=== PATIENT | female | born 1960 | race Caucasian/White ===

== ENCOUNTER 2021-04-28 12:21 | Emergency (ER) | payer OTHER, SELFPAY ==
[2021-04-28] MEDS ORDERED: Fluorescein Opthalmic Strip L EYE ONE (16:00)
== END 2021-04-28 16:35 | disposition home or self-care (01) ==
LOC: CSHERS 12:21
DX: L03.213 Periorbital cellulitis (principal); F17.210 Nicotine dependence, cigarettes, uncomplicated
CPT/HCPCS: 99282